=== PATIENT | female | born 1970 ===

== ENCOUNTER 2022-12-29 05:38 | Outpatient (CLI) | payer MEDICAID ==
[~2022-12-29] VITALS: Ht 165.1 cm; Wt 99.8 kg
[2023-01-03] MEDS ORDERED: LOSA50TA63 PO (13:26)
== END 2023-01-03 13:39 ==
LOC: PREOP 05:38
PROVIDERS: ATTEND Surgery
DX: Z01.818 Encounter for other preprocedural examination (principal)